=== PATIENT | male | born 1955 ===

== ENCOUNTER → 2025-02-05 | Outpatient (CLI) | payer OTHER ==
[~2025-02-05] MED LIST: ALDACTONE25 MG PO; AMOX-CLAV 875-1 EACH PO; ASPIRIN ADULT L81 M2 PO; ATORVASTATIN CA80 M1 PO; BARIUM SULFATE 98% 340 GM BOT PO ONE; BISACODYL10 MG R; Carafate1 GM PO; ENULOSE10 GM/151 PO; FLEET ENEMA 13133 ML R; HYDROCODONE-AC1 EAC1 PO; INCRUSE ELLI62.5 MCG INH; Ipratropium Brom3 ML INH; JARDIANCE10 MG PO; K-LOR 20MEQ20 ME1 PO; LASIX40 MG PO; LOPERAMIDE HCL2 M1 PO; LOPRESSOR IV; MAGNESIUM400 M1 PO; METOPROLOL SUCC50 M1 PO; MILK OF MA400 MG/52 PO; MIRALAX POWDER17 G1 PO; ONDANSETRON HYDR4 MG PO; PACERONE200 MG PO; RISPERDAL1 M1 PO; STYE OU; TYLENOL325 M2 PO
== END | disposition home or self-care (01) ==
LOC: RAD/SH 01:29
PROVIDERS: ATTEND Student in an Organized Health Care Education/Training Program
DX: R13.10 Dysphagia, unspecified (principal)